=== PATIENT | female | born 1965 | race Caucasian/White ===

== ENCOUNTER 2022-05-11 11:46 | Inpatient (IN) | payer SELFPAY ==
[2022-05-11 12:49] LABS: #Basophils 0.1 thou/uL (0.0-0.2); #Eosinphils 0.1 thou/uL (0.0-0.7); #Lymphocytes 1.9 thou/uL (1.20-3.40); #Monocytes 0.5 thou/uL (0.11-0.59); #Neutrophils 4.5 thou/uL (1.40-6.50); %Eosinophils 2.1 % (0.0-10.0); %Lymphocytes 26.3 % (21.0-51.0); %Monocytes 7.5 % (0.0-10.0); %Neutrophils 63.1 % (42.0-75.0); Hemoglobin 14.5 g/dL (12.0-16.0); Mean Corpuscular HGB CONC 33.2 g/dL (32.0-36.0); Mean Corpuscular Hemoglobin 31.8 pg (27.0-31.0); Mean Corpuscular Volume 95.7 fL (78.0-98.0); Mean Platelet Volume 7.1 fL (7.4-10.4); Platelet Count 258 thou/uL (130-400); RBC Distribution Width 12.5 % (11.5-14.5); Red Blood Cell (RBC) Count 4.58 mill/uL (4.20-5.40); White Blood Cell (WBC) Count 7.2 thou/uL (4.8-10.8)
[2022-05-11] MEDS ORDERED: Ketorolac Tromethamine 30 MG/ML VIAL ONE (12:53)
[2022-05-11] MEDS ORDERED: hydrOXYzine 25 MG TAB ONE (12:53)
[2022-05-11 13:28] LABS: Bacteria/HPF 4+ HPF (None Seen); Bilirubin Negative (Negative); Blood, Urine Negative (Negative); Clarity Turbid (Clear); Glucose, Urine (Dipstick) Normal (Negative); Ketone, Urine Negative (Negative); Leukocyte 250 Leu/uL (Negative); Nitrite 2+ (Negative); Protein, Urine (Dipstick) Negative (Neg-Trace); Renal Epithelial 0-3 HPF (None Seen); Specific Gravity, Urine 1.016 (1.002-1.036); Urobilinogen Normal mg/dL (Less than 2); WBC/HPF 21-50 HPF (0-3)
[2022-05-11 13:45] LABS: ALT (SGPT) 19 U/L (8-55); AST (SGOT) 23 U/L (5-34); Albumin 4.3 g/dL (3.5-5.0); Alkaline Phosphatase 100 U/L (40-110); Anion Gap 17 mmol/L (10-20); BUN (Urea Nitrogen) 14 mg/dL (9.8-20.1); Bilirubin, Total 0.4 mg/dL (0.2-1.2); Calc. Creatinine Clearance 0 mL/min (70-130); Calcium 9.6 mg/dL (7.8-10.44); Carbon Dioxide 19 mmol/L (22-29); Chloride 103 mmol/L (98-107); Estimated GFR 90; Globulin 3.3 g/dL (2.4-3.5); Glucose 77 mg/dL (70-105); Lipase 25 U/L (8-78); Potassium 3.6 mmol/L (3.5-5.1); Protein, Total 7.6 g/dL (6.0-8.3); Sodium 135 mmol/L (136-145)
[2022-05-11] MEDS ORDERED: Iopamidol-370 76% 500 ML 1 ML ONE (13:57)
[2022-05-11] MEDS ORDERED: Prochlorperazine 10 MG/2 ML VIAL IVP SCH (14:15)
[2022-05-11] MEDS ORDERED: Aspirin Chewable 81 MG TAB ONE (14:24)
[2022-05-11 14:31] LABS: CKMB 5.4 ng/mL (0-6.6)
[2022-05-11] MEDS ORDERED: cefTRIAXone\\ROCEPHIN 2 GM VIAL ONE (16:17)
[2022-05-11 17:10] LABS: Troponin I Less than 0.010 ng/mL (< 0.028)
[2022-05-11] MEDS ORDERED: Bisacodyl 5 MG TAB PO PRN (18:03)
[2022-05-11] MEDS ORDERED: Senokot S 8.6-50 MG TAB PO PRN (18:03)
[2022-05-11] MEDS ORDERED: Ondansetron ODT 4 MG TAB PO PRN (18:03)
[2022-05-11] MEDS ORDERED: Bisacodyl 10 MG SUPP PR PRN (18:03)
[2022-05-11] MEDS ORDERED: Ondansetron PF 4 MG/2 ML Vial IVP PRN (18:03)
[2022-05-11 18:42] LABS: Hemoglobin A1c 5.6 % (4.0-6.0)
[2022-05-11 20:37] VITALS: BMI 30.3
[2022-05-11 20:50] LABS: Troponin I Less than 0.010 ng/mL (< 0.028)
[2022-05-11] MEDS ORDERED: hydrOXYzine 25 MG TAB PO SCH (21:00)
[2022-05-11] MEDS ORDERED: Topiramate 100 MG TAB PO SCH (23:00)
[2022-05-11] MEDS ORDERED: Bupropion 150 MG XL TAB PO SCH (23:00)
[2022-05-11] MEDS ORDERED: Pancrelipase DR 12,000 1 CAP PO SCH (23:00)
[2022-05-11] MEDS: Sodium Chloride 0.9% 1,000 ML IV SCH (23:59)
[2022-05-12] MEDS ORDERED: Sodium Chloride 0.65% Nasal 44 ML BOT EA NARE PRN (00:10)
[2022-05-12 07:11] LABS: Anion Gap 13 mmol/L (10-20); BUN (Urea Nitrogen) 21 mg/dL (9.8-20.1); Calc. Creatinine Clearance 110 mL/min (70-130); Calcium 9.7 mg/dL (7.8-10.44); Carbon Dioxide 26 mmol/L (22-29); Chloride 104 mmol/L (98-107); Cholesterol 230 mg/dl (< 200 Desired); Estimated GFR 94; Glucose 100 mg/dL (70-105); HDL Cholesterol 76 mg/dL (>60 Neg Risk); LDL Cholesterol, Calculated 129 mg/dL; Potassium 3.2 mmol/L (3.5-5.1); Sodium 140 mmol/L (136-145); Triglycerides 127 mg/dL (Less than 150)
[2022-05-12] MEDS: Bupropion 150 MG XL TAB PO SCH ×2 (08:07→20:25)
[2022-05-12] MEDS: Aspirin Chewable 81 MG TAB PO SCH (08:07)
[2022-05-12] MEDS: Pancrelipase DR 12,000 1 CAP PO SCH ×3 (08:07→17:38)
[2022-05-12] MEDS: Acetaminophen 325 MG TAB PO PRN ×2 (08:10→14:22)
[2022-05-12] MEDS: Topiramate 100 MG TAB PO SCH ×2 (08:11→23:37)
[2022-05-12] MEDS: Sodium Chloride 0.9% 1,000 ML IV SCH (08:12)
[2022-05-12] MEDS ORDERED: Enoxaparin Sodium 30 MG/0.3 ML SYRINGE SC SCH (09:00)
[2022-05-12] MEDS ORDERED: Potassium Chloride 20 MEQ TAB PO SCH (11:00)
[2022-05-12] MEDS ORDERED: cefTRIAXone\\ROCEPHIN 1 GM in Sodium Chloride 0.9% 100 ML IVPB SCH (17:00)
[2022-05-12 17:31] LABS: #Eosinphils 0.2 thou/uL (0.0-0.7); #Lymphocytes 1.8 thou/uL (1.20-3.40); #Monocytes 0.7 thou/uL (0.11-0.59); #Neutrophils 3.8 thou/uL (1.40-6.50); %Basophils 0.7 % (0.0-1.0); %Lymphocytes 27.1 % (21.0-51.0); %Monocytes 10.1 % (0.0-10.0); Hemoglobin 13.4 g/dL (12.0-16.0); Mean Corpuscular HGB CONC 33.2 g/dL (32.0-36.0); Mean Corpuscular Hemoglobin 31.1 pg (27.0-31.0); Mean Corpuscular Volume 93.7 fL (78.0-98.0); Mean Platelet Volume 7.5 fL (7.4-10.4); Platelet Count 216 thou/uL (130-400); RBC Distribution Width 12.7 % (11.5-14.5); Red Blood Cell (RBC) Count 4.29 mill/uL (4.20-5.40); White Blood Cell (WBC) Count 6.5 thou/uL (4.8-10.8)
[2022-05-12] MEDS: Ciprofloxacin 500 MG TAB PO SCH (20:24)
[2022-05-12] MEDS: busPIRone HCl 5 MG TAB PO SCH (20:25)
[2022-05-12] MEDS: traMADol HCl 50 MG TAB PO PRN (20:25)
[2022-05-13] MEDS: Ciprofloxacin 500 MG TAB PO SCH (06:46)
[2022-05-13] MEDS: Aspirin Chewable 81 MG TAB PO SCH (07:53)
[2022-05-13] MEDS: Pancrelipase DR 12,000 1 CAP PO SCH ×2 (07:53→11:10)
[2022-05-13] MEDS: Bupropion 150 MG XL TAB PO SCH (07:53)
[2022-05-13] MEDS: Topiramate 100 MG TAB PO SCH (07:54)
[2022-05-13] MEDS: busPIRone HCl 5 MG TAB PO SCH (07:54)
[2022-05-13] MEDS: traMADol HCl 50 MG TAB PO PRN (07:55)
[2022-05-13] MEDS ORDERED: Enoxaparin Sodium 40 MG/0.4 ML SYRINGE SC SCH (09:00)
[2022-05-13] MEDS: Acetaminophen 325 MG TAB PO PRN (11:12)
[2022-05-13 11:49] VITALS: BP 121/73; TEMP 98.1
== END 2022-05-13 12:45 | disposition home or self-care (01) | DRG 552 ==
LOC: ERS 11:46 → ERHOLD 16:35 → 2SW 19:51 → OBSVTOIN 05-12 15:35
PROVIDERS: ADMIT Internal Medicine; ATTEND Internal Medicine
DX: M51.34 Other intervertebral disc degeneration, thoracic region (principal); N39.0 Urinary tract infection, site not specified; E87.1 Hypo-osmolality and hyponatremia; E87.2 Acidosis; T82.868A Thrombosis due to vascular prosthetic devices, implants and grafts, initial encounter; I82.621 Acute embolism and thrombosis of deep veins of right upper extremity; Z16.23 Resistance to quinolones and fluoroquinolones; Y84.8 Other medical procedures as the cause of abnormal reaction of the patient, or of later complication, without mention of misadventure at the time of the procedure; Z20.822 Contact with and (suspected) exposure to COVID-19; M06.9 Rheumatoid arthritis, unspecified; F41.9 Anxiety disorder, unspecified; F32.A Depression, unspecified; F17.210 Nicotine dependence, cigarettes, uncomplicated; E05.90 Thyrotoxicosis, unspecified without thyrotoxic crisis or storm; B96.20 Unspecified Escherichia coli [E. coli] as the cause of diseases classified elsewhere; R07.89 Other chest pain; Z88.5 Allergy status to narcotic agent; Z90.49 Acquired absence of other specified parts of digestive tract; Z98.890 Other specified postprocedural states; Z90.711 Acquired absence of uterus with remaining cervical stump; Z82.49 Family history of ischemic heart disease and other diseases of the circulatory system
CPT/HCPCS: 36415; 71045; 71275; 72146; 74177; 78451; 80048; 80053; 80061; 81003; 81015; 82553; 83036; 83690; 83735; 84439; 84443; 84480; 84484; 85025; 85379; 87077; 87086; 87186; 93005; 94760; 96361; 96365; 96375; A9500; G0378; J0696; J0780; J1650; J1885; J7050; Q9967; U0003; U0005